=== PATIENT | female | born 1960 | race Caucasian/White ===

== ENCOUNTER 2018-11-18 14:21 | Observation (INO) ==
[2018-11-18 15:22] LABS: Basophils # 0.1 10*3/uL (0.0-0.2); Basophils % 0.7 % (0.0-0.8); Eosinophils # 0.1 10*3/uL (0.0-0.87); Eosinophils % 1.6 % (0.00-10.9); Hematocrit 33.4 VOL% (35.7-47.0); Hemoglobin 10.2 GM/DL (12.0-16.0); Immature Granulocytes % 0.5 %; Immature Granulocytes Absolute 0.04 #; Lymphocytes % 23.7 % (21.3-54.2); Mean Corpuscular HGB Conc 30.5 GM/DL (32-36); Mean Corpuscular Volume 84.3 FL (87-102); Mean Platelet Volume 9.1 FL (9.6-12.0); Monocytes % 6.8 % (1.7-12.7); Neutrophils % 66.7 % (38.7-73.9); Platelet Count 376 T/CUMM (130-400); Red Blood Count 3.96 MC/CUMM (3.8-5.5); Red Cell Distribution Width 15.9 % (9.3-17.3); White Blood Count 8.3 T/CUMM (4-12)
[2018-11-18 15:38] LABS: Albumin 3.9 G/DL (3.4-5.0); Bilirubin,Total 0.7 MG/DL (0.2-1.0); Calcium 8.9 MG/DL (8.5-10.1); Osmolality,Calculated 282.4 MOS/KG (273-304); Total Protein 7.5 G/DL (6.4-8.3)
[2018-11-18] MEDS ORDERED: FUROSEMIDE 40 MG/4 ML VIAL IV STA (16:06)
[2018-11-18] MEDS ORDERED: ONDANSETRON 4 MG/2 ML VIAL IV PRN (17:23)
[2018-11-18] MEDS ORDERED: ACETAMINOPHEN 325 MG TABLET PO PRN (17:23)
[2018-11-18] MEDS ORDERED: DEXTROSE 50% 25 GM/50 ML SYRINGE IV PRN (17:23)
[2018-11-18] MEDS ORDERED: DOCUSATE SODIUM 100 MG CAPSULE PO PRN (17:23)
[2018-11-18] MEDS ORDERED: GLUCAGON 1 MG VIAL IM PRN (17:23)
[2018-11-18 18:19] LABS: Risk Ratio 3.31; Thyroid Stimulating Hormone 3.56 uIU/ml (0.358-3.74); VLDL CHOLESTEROL 37.6 MG/DL
[2018-11-18 18:28] LABS: Apearance,Urine CLEAR (Clear); Bilirubin,Urine Negative (Negative); Blood, Urine Negative (Negative); Glucose,Urine (UA) Negative (Negative); Ketones,Urine Negative (Negative); Mucus,Urine Occasional /LPF (Occasional); Nitrite,Urine Negative (Negative); Protein,Urine Negative; RBC,Urine 1 /HPF (0-4); Urine Color Colorless (Yellow); Urine Specific Gravity 1.009 (1.001-1.035); Urine Urobilinogen < 2.0 EU/DL (0.2-1.0); WBC,Urine 1 /HPF (0-6)
[2018-11-18] MEDS: ALBUTEROL/IPRATROPIUM 3 ML NEB RESP TX SCH (19:05)
[2018-11-18 20:21] LABS: INR 1.3; PT Patient Result 13.8 SECS; Partial Thromboplastin Time 37.1 SECS (0-40)
[2018-11-18] MEDS: CARVEDILOL 25 MG TABLET PO SCH (21:07)
[2018-11-18] MEDS: GEMFIBROZIL 600 MG TABLET PO SCH (21:07)
[2018-11-18] MEDS: INSULIN LISPRO 100 UNIT/ML SUBCUT SCH (21:07)
[2018-11-18] MEDS: VERAPAMIL SR 240 MG TABLET PO SCH (21:07)
[2018-11-19] MEDS: ALBUTEROL/IPRATROPIUM 3 ML NEB RESP TX SCH ×4 (00:35→19:34)
[2018-11-19 05:58] LABS: Basophils % 0.5 % (0.0-0.8); Eosinophils # 0.2 10*3/uL (0.0-0.87); Immature Granulocytes % 0.6 %; Immature Granulocytes Absolute 0.05 #; Lymphocytes # 2.8 10*3/uL (1.4-4.0); Lymphocytes % 34.5 % (21.3-54.2); Mean Corpuscular Volume 86.9 FL (87-102); Mean Platelet Volume 8.8 FL (9.6-12.0); Monocytes % 6.7 % (1.7-12.7); Neutrophils % 55.7 % (38.7-73.9); Platelet Count 363 T/CUMM (130-400); Red Blood Count 3.89 MC/CUMM (3.8-5.5); Red Cell Distribution Width 16.1 % (9.3-17.3); White Blood Count 8.1 T/CUMM (4-12)
[2018-11-19 06:07] LABS: Osmolality,Calculated 277.5 MOS/KG (273-304)
[2018-11-19 06:25] LABS: Hematocrit 33.3 VOL% (35.7-47.0); Hemoglobin 9.9 GM/DL (12.0-16.0)
[2018-11-19] MEDS: INSULIN LISPRO 100 UNIT/ML SUBCUT SCH ×4 (07:33→20:38)
[2018-11-19] MEDS ORDERED: FUROSEMIDE 40 MG/4 ML VIAL IV SCH (09:00)
[2018-11-19] MEDS: OLMESARTAN 20 MG TABLET PO SCH (10:02)
[2018-11-19] MEDS: PANTOPRAZOLE 40 MG TABLET PO SCH (10:02)
[2018-11-19] MEDS: CARVEDILOL 25 MG TABLET PO SCH ×2 (10:02→16:32)
[2018-11-19] MEDS: SPIRONOLACTONE 25 MG TABLET PO SCH (10:02)
[2018-11-19] MEDS: GEMFIBROZIL 600 MG TABLET PO SCH ×2 (10:02→20:36)
[2018-11-19] MEDS: VERAPAMIL SR 240 MG TABLET PO SCH ×2 (10:02→20:36)
[2018-11-19] MEDS: FUROSEMIDE 40 MG/4 ML VIAL IV SCH ×2 (10:03→16:32)
[2018-11-19] MEDS: RIVAROXABAN 20 MG TABLET PO SCH (10:03)
[2018-11-19] MEDS: CALCIUM (CARBONATE) 600 MG TABLET PO SCH (10:03)
[2018-11-19] MEDS: MULTIVITAMIN (CENTRUM) TABLET PO SCH (10:03)
[2018-11-20] MEDS: ALBUTEROL/IPRATROPIUM 3 ML NEB RESP TX SCH ×3 (01:26→13:48)
[2018-11-20 04:36] LABS: Basophils # 0.1 10*3/uL (0.0-0.2); Basophils % 0.8 % (0.0-0.8); Eosinophils # 0.2 10*3/uL (0.0-0.87); Eosinophils % 1.9 % (0.00-10.9); Hemoglobin 10.5 GM/DL (12.0-16.0); Immature Granulocytes % 0.6 %; Immature Granulocytes Absolute 0.06 #; Lymphocytes # 3.6 10*3/uL (1.4-4.0); Lymphocytes % 35.8 % (21.3-54.2); Mean Corpuscular Volume 84.7 FL (87-102); Mean Platelet Volume 8.8 FL (9.6-12.0); Monocytes % 7.6 % (1.7-12.7); Neutrophils % 53.3 % (38.7-73.9); Platelet Count 403 T/CUMM (130-400); Red Blood Count 4.13 MC/CUMM (3.8-5.5); Red Cell Distribution Width 15.6 % (9.3-17.3); White Blood Count 10.1 T/CUMM (4-12)
[2018-11-20 05:06] LABS: Calcium 9.2 MG/DL (8.5-10.1); Osmolality,Calculated 277.7 MOS/KG (273-304)
[2018-11-20] MEDS: INSULIN LISPRO 100 UNIT/ML SUBCUT SCH ×3 (07:46→17:50)
[2018-11-20] MEDS ORDERED: POTASSIUM CHLORIDE 20 MEQ TABLET PO PRN (08:25)
[2018-11-20] MEDS: PANTOPRAZOLE 40 MG TABLET PO SCH (09:00)
[2018-11-20] MEDS ORDERED: FUROSEMIDE 40 MG TABLET PO SCH (09:00)
[2018-11-20] MEDS: VERAPAMIL SR 240 MG TABLET PO SCH (09:00)
[2018-11-20] MEDS: RIVAROXABAN 20 MG TABLET PO SCH (09:00)
[2018-11-20] MEDS: CARVEDILOL 25 MG TABLET PO SCH ×2 (09:00→18:41)
[2018-11-20] MEDS: MULTIVITAMIN (CENTRUM) TABLET PO SCH (09:00)
[2018-11-20] MEDS: CALCIUM (CARBONATE) 600 MG TABLET PO SCH (09:00)
[2018-11-20] MEDS ORDERED: POTASSIUM CHLORIDE 20 MEQ/15 ML UDCUP PO SCH (09:00)
[2018-11-20] MEDS: SPIRONOLACTONE 25 MG TABLET PO SCH (09:00)
[2018-11-20] MEDS: OLMESARTAN 20 MG TABLET PO SCH (09:00)
[2018-11-20] MEDS: GEMFIBROZIL 600 MG TABLET PO SCH (09:02)
[2018-11-20] MEDS: FUROSEMIDE 40 MG/4 ML VIAL IV SCH (09:15)
[2018-11-20 18:31] VITALS: BP 120/68
== END 2018-11-20 18:41 | disposition home or self-care (01) ==
LOC: N.ED 14:21 → N.EDINP 14:21 → N.2E 19:00
PROVIDERS: ADMIT Hospitalist; ATTEND Hospitalist